=== PATIENT | male | born 1975 | race Hispanic/Latino ===

== ENCOUNTER 2023-04-21 16:45 | Inpatient (IN) | payer BC, OTHER ==
[~2023-04-21] VITALS: Ht 172.7 cm; Wt 147.9 kg
[2023-04-21 17:47] LABS: BASOPHILS % (AUTO) 0.3 % (0.0-5.0); EOSINOPHILS % (AUTO) 0.3 % (0.0-8.0); HEMATOCRIT 47.8 % (42-54); LYMPHOCYTES % (AUTO) 4.6 % (21.0-51.0); MEAN CORPUSCULAR HEMOGLOBIN 27.4 pg (27.0-33.0); MEAN CORPUSCULAR HGB CONC 32.8 g/dL (32.0-36.0); MEAN CORPUSCULAR VOLUME 83.3 fL (79-99); MONOCYTES % (AUTO) 9.8 % (3.0-13.0); NEUTROPHILS % (AUTO) 84.3 % (40.0-77.0); PLATELET COUNT (AUTO) 331 K/uL (130-400); RED BLOOD CELL COUNT(AUTO) 5.74 MIL/uL (4.50-6.20); RED CELL DISTRIBUTION WIDTH 12.6 % (11.0-15.5); WHITE BLOOD COUNT (AUTO) 26.4 K/uL (4.8-10.8)
[2023-04-21 17:58] LABS: INR 1.11 (0.85-1.15); PROTHROMBIN TIME 12.8 SEC (9.6-11.6)
[2023-04-21 17:59] LABS: PARTIAL THROMBOPLASTIN TIME 30.6 SEC (26.3-35.5)
[2023-04-21 18:15] LABS: ALBUMIN 2.6 g/dL (3.5-5.0); TOTAL PROTEIN, SERUM 8.6 g/dL (6.0-8.3)
[2023-04-21] MEDS ORDERED: LACTATED RINGERS 1000ML 1,000 ML IV ONE (18:57)
[2023-04-21] MEDS ORDERED: ZOSYN 3.375GM+NS 50ML 50 ML IVPB ONE (18:57)
[2023-04-21] MEDS ORDERED: ZOSYN 3.375GM +NS 50ML IVPB SCH (19:00)
[2023-04-21] MEDS ORDERED: VANCOMYCIN PROTOCOL PER PHARMACY IV SCH (19:00)
[2023-04-21] MEDS ORDERED: VANCOMYCIN KIT 1 GM/250 ML IV.KIT IV ONE (19:00)
[2023-04-21] MEDS ORDERED: LACTATED RINGERS 1000ML 1,000 ML IV SCH (19:00)
[2023-04-21] MEDS ORDERED: ONDANSETRON 4MG INJ IV PRN (19:30)
[2023-04-21] MEDS ORDERED: ACETAMINOPHEN 325 MG TAB PO PRN ×2 (19:30)
[2023-04-21] MEDS ORDERED: LACTATED RINGERS 1000ML 2,052 ML IV SCH (19:30)
[2023-04-21] MEDS ORDERED: HYDROMORPHONE 1 MG INJ IV PRN (19:30)
[2023-04-21] MEDS ORDERED: VANCOMYCIN PROTOCOL PER PHARMACY IV PRN (19:30)
[2023-04-21] MEDS: FAMOTIDINE 20MG VIAL IV SCH (20:04)
[2023-04-21] MEDS: ZOSYN 3.375GM+NS 50ML 50 ML IVPB SCH (21:00)
[2023-04-21] MEDS ORDERED: ASPIRIN 81MG CHEW TAB PO ONE (21:00)
[2023-04-21] MEDS ORDERED: VANCOMYCIN 1G 2.5 GM in 0.9% NACL 500ML IV.SOLN 500 ML IV SCH (21:00)
[2023-04-21] MEDS ORDERED: POTASSIUM CHLORIDE 20MEQ/100ML 100 ML IV PRN (21:00)
[2023-04-21] MEDS: LACTATED RINGERS 1000ML 1,000 ML IV SCH (21:19)
[2023-04-21] MEDS: HEPARIN 5,000 UNIT VIAL SQ SCH (21:20)
[2023-04-21] MEDS: NITROGLYCERIN 1GM OINT 1 INCH/1GM TD SCH (21:20)
[2023-04-21] MEDS: INSULIN HUMULIN R 100 UNIT/ML 3ML SQ SCH (21:43)
[2023-04-21 22:40] VITALS: BP 143/83; PULSE 100; RESP 25
[2023-04-21 23:00] VITALS: O2SAT 100
[2023-04-21] MEDS ORDERED: DOXY-469 PO (23:12)
[2023-04-21] MEDS ORDERED: GABA-529 PO (23:12)
[2023-04-21] MEDS ORDERED: LISI2.5T13 PO (23:12)
[2023-04-21] MEDS ORDERED: SITA1TAB6 PO (23:12)
[2023-04-21] MEDS ORDERED: ATOR20TA65 PO (23:12)
[2023-04-21] MEDS: HYDROCODONE/ACETAMINOPHEN 5/325 MG TAB PO PRN (23:46)
[2023-04-22] VITALS (22 sets, daily range): BP systolic 118–139; BP diastolic 58–79; PULSE 83–99; RESP 11–21; O2SAT 93–96
[2023-04-22 05:23] LABS: BASOPHILS % (AUTO) 0.3 % (0.0-5.0); EOSINOPHILS % (AUTO) 0.3 % (0.0-8.0); HEMATOCRIT 41.5 % (42-54); MEAN CORPUSCULAR HEMOGLOBIN 26.7 pg (27.0-33.0); MEAN CORPUSCULAR HGB CONC 32.5 g/dL (32.0-36.0); MONOCYTES % (AUTO) 10.4 % (3.0-13.0); NEUTROPHILS % (AUTO) 78.3 % (40.0-77.0); PLATELET COUNT (AUTO) 294 K/uL (130-400); RED BLOOD CELL COUNT(AUTO) 5.06 MIL/uL (4.50-6.20); RED CELL DISTRIBUTION WIDTH 12.9 % (11.0-15.5); WHITE BLOOD COUNT (AUTO) 27.1 K/uL (4.8-10.8)
[2023-04-22 05:37] LABS: INR 1.07 (0.85-1.15); PROTHROMBIN TIME 12.4 SEC (9.6-11.6)
[2023-04-22 05:39] LABS: PARTIAL THROMBOPLASTIN TIME 31.9 SEC (26.3-35.5)
[2023-04-22 05:52] LABS: CREATININE 0.9 mg/dL (0.5-1.5); MAGNESIUM 1.7 mg/dL (1.80-2.40); PHOSPHORUS 3.8 mg/dL (2.5-4.9); POTASSIUM 4.6 mmol/L (3.5-5.1)
[2023-04-22 06:27] LABS: HEMOGLOBIN A1C 12.4 % (4.0-6.0)
[2023-04-22] MEDS: NITROGLYCERIN 1GM OINT 1 INCH/1GM TD SCH ×3 (06:32→20:30)
[2023-04-22] MEDS: INSULIN HUMULIN R 100 UNIT/ML 3ML SQ SCH ×4 (06:32→20:35)
[2023-04-22] MEDS: ZOSYN 3.375GM+NS 50ML 50 ML IVPB SCH ×3 (06:33→20:29)
[2023-04-22] MEDS ORDERED: VANCOMYCIN IV SCH (09:00)
[2023-04-22] MEDS ORDERED: NACL 0.9% IV SCH (09:00)
[2023-04-22] MEDS: ASPIRIN 81MG CHEW TAB PO SCH (09:26)
[2023-04-22] MEDS: FAMOTIDINE 20MG VIAL IV SCH ×2 (09:26→20:30)
[2023-04-22] MEDS: LACTATED RINGERS 1000ML 1,000 ML IV SCH ×2 (09:27→22:10)
[2023-04-22] MEDS: HEPARIN 5,000 UNIT VIAL SQ SCH ×3 (09:33→20:30)
[2023-04-22] MEDS: MAGNESIUM 2GM PREMIX 50ML 50 ML IV PRN (09:37)
[2023-04-22] MEDS: HYDROCODONE/ACETAMINOPHEN 5/325 MG TAB PO PRN (13:09)
[2023-04-22] MEDS ORDERED: LIDOCAINE HCL 1% 20 ML VIAL ONE (18:52)
[2023-04-22] MEDS ORDERED: BUPIVACAINE/PF 0.5% 30ML VIAL ONE (18:52)
[2023-04-22] MEDS: VANCOMYCIN 1.5 GM/250 ML BAG 250 ML IV SCH (20:29)
[2023-04-22] MEDS ORDERED: FENTANYL CITRATE PF 50 MCG/1 ML 2ML VIAL ONE ×3 (21:22→21:55)
[2023-04-22] MEDS ORDERED: PROPOFOL 10 MG/ML 20ML VIAL IV ONE (21:22)
[2023-04-22] MEDS ORDERED: PROPOFOL 1000 MG/100 ML 100 ML IV ONE (21:30)
[2023-04-22] MEDS ORDERED: MIDAZOLAM HCL 1 MG/ML 2ML VIAL ONE (21:31)
[2023-04-22] MEDS ORDERED: BUPIVACAINE/PF 0.5% 30ML VIAL INJ ONE (21:37)
[2023-04-22] MEDS ORDERED: LIDOCAINE HCL 1% 20 ML VIAL INJ ONE (21:37)
[2023-04-22] MEDS ORDERED: ONDANSETRON 4MG INJ ONE (21:55)
[2023-04-23] VITALS (13 sets, daily range): BP systolic 95–152; BP diastolic 48–85; PULSE 80–88; RESP 18–21; O2SAT 97–98
[2023-04-23] MEDS: HYDROCODONE/ACETAMINOPHEN 5/325 MG TAB PO PRN ×2 (02:25→20:43)
[2023-04-23] MEDS: VANCOMYCIN 1.5 GM/250 ML BAG 250 ML IV SCH ×3 (04:16→20:31)
[2023-04-23] MEDS: ZOSYN 3.375GM+NS 50ML 50 ML IVPB SCH ×3 (04:17→20:31)
[2023-04-23] MEDS: NITROGLYCERIN 1GM OINT 1 INCH/1GM TD SCH ×2 (04:17→13:00)
[2023-04-23 06:05] LABS: BASOPHILS % (AUTO) 0.4 % (0.0-5.0); EOSINOPHILS % (AUTO) 0.5 % (0.0-8.0); HEMATOCRIT 34.4 % (42-54); LYMPHOCYTES % (AUTO) 18.7 % (21.0-51.0); MEAN CORPUSCULAR HEMOGLOBIN 27.4 pg (27.0-33.0); MEAN CORPUSCULAR HGB CONC 31.7 g/dL (32.0-36.0); MEAN CORPUSCULAR VOLUME 86.4 fL (79-99); MONOCYTES % (AUTO) 11.4 % (3.0-13.0); NEUTROPHILS % (AUTO) 67.5 % (40.0-77.0); PLATELET COUNT (AUTO) 256 K/uL (130-400); RED BLOOD CELL COUNT(AUTO) 3.98 MIL/uL (4.50-6.20); RED CELL DISTRIBUTION WIDTH 12.8 % (11.0-15.5)
[2023-04-23] MEDS: INSULIN HUMULIN R 100 UNIT/ML 3ML SQ SCH ×6 (06:13→20:33)
[2023-04-23 06:39] LABS: ALBUMIN 1.5 g/dL (3.5-5.0); CREATININE 1.1 mg/dL (0.5-1.5); POTASSIUM 3.1 mmol/L (3.5-5.1); TOTAL PROTEIN, SERUM 5.2 g/dL (6.0-8.3)
[2023-04-23] MEDS ORDERED: POTASSIUM CHLORIDE 20MEQ/100ML 100 ML IV PRN (07:00)
[2023-04-23] MEDS ORDERED: POTASSIUM CHLORIDE 10% ELIXIR 20 MEQ/15 ML UDCUP PO PRN (07:00)
[2023-04-23] MEDS ORDERED: MAGNESIUM 2GM PREMIX 50ML 50 ML IV PRN (07:00)
[2023-04-23] MEDS ORDERED: INSULIN GLARGINE 100 UNITS/ML 10 ML VIAL SQ SCH (09:00)
[2023-04-23] MEDS: FAMOTIDINE 20MG VIAL IV SCH ×2 (09:50→20:30)
[2023-04-23] MEDS: ASPIRIN 81MG CHEW TAB PO SCH (09:51)
[2023-04-23] MEDS: HEPARIN 5,000 UNIT VIAL SQ SCH ×3 (09:58→20:31)
[2023-04-23] MEDS: KCL 20 MEQ ERTAB PO PRN ×2 (12:05→14:39)
[2023-04-24] VITALS (8 sets, daily range): BP systolic 98–139; BP diastolic 44–82; PULSE 72–80; RESP 18–24; O2SAT 97–98
[2023-04-24] MEDS: KCL 20 MEQ ERTAB PO PRN (01:38)
[2023-04-24] MEDS: MAGNESIUM 2GM PREMIX 50ML 50 ML IV PRN (01:39)
[2023-04-24] MEDS: ZOSYN 3.375GM+NS 50ML 50 ML IVPB SCH ×3 (05:12→20:56)
[2023-04-24] MEDS: VANCOMYCIN 1.5 GM/250 ML BAG 250 ML IV SCH (05:13)
[2023-04-24] MEDS: INSULIN HUMULIN R 100 UNIT/ML 3ML SQ SCH ×7 (06:05→22:06)
[2023-04-24 09:03] LABS: CREATININE 0.8 mg/dL (0.5-1.5); MAGNESIUM 2.4 mg/dL (1.80-2.40); POTASSIUM 3.9 mmol/L (3.5-5.1)
[2023-04-24] MEDS: INSULIN GLARGINE 100 UNITS/ML 10 ML VIAL SQ SCH (09:21)
[2023-04-24] MEDS: HEPARIN 5,000 UNIT VIAL SQ SCH ×3 (09:21→22:07)
[2023-04-24] MEDS: ASPIRIN 81MG CHEW TAB PO SCH (09:22)
[2023-04-24] MEDS: FAMOTIDINE 20MG VIAL IV SCH ×2 (09:22→22:07)
[2023-04-24 12:44] LABS: HEMATOCRIT 38.4 % (42-54); MEAN CORPUSCULAR HEMOGLOBIN 27.1 pg (27.0-33.0); MEAN CORPUSCULAR HGB CONC 31.5 g/dL (32.0-36.0); MEAN CORPUSCULAR VOLUME 85.9 fL (79-99); RED BLOOD CELL COUNT(AUTO) 4.47 MIL/uL (4.50-6.20); RED CELL DISTRIBUTION WIDTH 12.9 % (11.0-15.5); WHITE BLOOD COUNT (AUTO) 17.8 K/uL (4.8-10.8)
[2023-04-24] MEDS: VANCOMYCIN 1.75 GM/250 ML BAG 250 ML IV SCH (19:04)
[2023-04-24] MEDS: HYDROCODONE/ACETAMINOPHEN 5/325 MG TAB PO PRN (19:04)
[2023-04-25] VITALS (8 sets, daily range): BP systolic 97–140; BP diastolic 72–82; PULSE 71–75; RESP 20–24; O2SAT 95–98
[2023-04-25] MEDS: ZOSYN 3.375GM+NS 50ML 50 ML IVPB SCH ×3 (04:14→20:54)
[2023-04-25 05:02] LABS: HEMATOCRIT 37.5 % (42-54); MEAN CORPUSCULAR HEMOGLOBIN 26.6 pg (27.0-33.0); MEAN CORPUSCULAR HGB CONC 30.7 g/dL (32.0-36.0); MEAN CORPUSCULAR VOLUME 86.6 fL (79-99); PLATELET COUNT (AUTO) 339 K/uL (130-400); RED BLOOD CELL COUNT(AUTO) 4.33 MIL/uL (4.50-6.20); RED CELL DISTRIBUTION WIDTH 12.9 % (11.0-15.5); WHITE BLOOD COUNT (AUTO) 14.6 K/uL (4.8-10.8)
[2023-04-25 05:17] LABS: CREATININE 0.8 mg/dL (0.5-1.5); MAGNESIUM 2.2 mg/dL (1.80-2.40); POTASSIUM 3.6 mmol/L (3.5-5.1)
[2023-04-25] MEDS: KCL 20 MEQ ERTAB PO PRN (05:23)
[2023-04-25] MEDS: INSULIN HUMULIN R 100 UNIT/ML 3ML SQ SCH ×7 (06:35→20:11)
[2023-04-25] MEDS: VANCOMYCIN 1.75 GM/250 ML BAG 250 ML IV SCH ×2 (09:26→20:53)
[2023-04-25] MEDS: ASPIRIN 81MG CHEW TAB PO SCH (09:27)
[2023-04-25] MEDS: FAMOTIDINE 20MG VIAL IV SCH ×2 (09:27→20:54)
[2023-04-25] MEDS: INSULIN GLARGINE 100 UNITS/ML 10 ML VIAL SQ SCH (09:32)
[2023-04-25] MEDS: HEPARIN 5,000 UNIT VIAL SQ SCH ×3 (09:43→20:53)
[2023-04-25] MEDS: HYDROCODONE/ACETAMINOPHEN 5/325 MG TAB PO PRN (15:47)
[2023-04-26] VITALS (8 sets, daily range): BP systolic 101–153; BP diastolic 62–91; PULSE 68–76; RESP 20; O2SAT 95–97
[2023-04-26] MEDS: INSULIN HUMULIN R 100 UNIT/ML 3ML SQ SCH ×7 (05:53→21:00)
[2023-04-26] MEDS: ZOSYN 3.375GM+NS 50ML 50 ML IVPB SCH ×3 (06:00→21:29)
[2023-04-26 06:56] LABS: BASOPHILS % (AUTO) 0.6 % (0.0-5.0); EOSINOPHILS % (AUTO) 2.7 % (0.0-8.0); HEMATOCRIT 38.5 % (42-54); LYMPHOCYTES % (AUTO) 14.4 % (21.0-51.0); MEAN CORPUSCULAR HEMOGLOBIN 26.9 pg (27.0-33.0); MEAN CORPUSCULAR HGB CONC 30.9 g/dL (32.0-36.0); MEAN CORPUSCULAR VOLUME 86.9 fL (79-99); MONOCYTES % (AUTO) 9.5 % (3.0-13.0); PLATELET COUNT (AUTO) 415 K/uL (130-400); RED BLOOD CELL COUNT(AUTO) 4.43 MIL/uL (4.50-6.20); RED CELL DISTRIBUTION WIDTH 12.9 % (11.0-15.5); WHITE BLOOD COUNT (AUTO) 14.3 K/uL (4.8-10.8)
[2023-04-26 07:05] LABS: ALBUMIN 1.8 g/dL (3.5-5.0); CRP QUANTITATIVE 74.8 mg/L (0.00-9.0); TOTAL PROTEIN, SERUM 7.3 g/dL (6.0-8.3)
[2023-04-26 08:17] LABS: ERYTHROCYTE SEDIMENTATION RATE 120 MM/HR (0-15)
[2023-04-26] MEDS: FAMOTIDINE 20MG VIAL IV SCH ×2 (10:44→21:28)
[2023-04-26] MEDS: VANCOMYCIN 1.75 GM/250 ML BAG 250 ML IV SCH ×2 (10:44→21:29)
[2023-04-26] MEDS: INSULIN GLARGINE 100 UNITS/ML 10 ML VIAL SQ SCH (10:46)
[2023-04-26] MEDS: HEPARIN 5,000 UNIT VIAL SQ SCH ×3 (10:46→21:28)
[2023-04-26] MEDS: ASPIRIN 81MG CHEW TAB PO SCH (10:48)
[2023-04-26] MEDS: DOCUSATE SODIUM 100 MG CAP PO SCH ×2 (14:38→21:28)
[2023-04-27] VITALS (7 sets, daily range): BP systolic 123–154; BP diastolic 56–108; PULSE 63–75; RESP 19–20; O2SAT 97
[2023-04-27] MEDS: ZOSYN 3.375GM+NS 50ML 50 ML IVPB SCH ×3 (04:55→20:17)
[2023-04-27 05:53] LABS: BASOPHILS % (AUTO) 0.4 % (0.0-5.0); EOSINOPHILS % (AUTO) 3.7 % (0.0-8.0); HEMATOCRIT 37.1 % (42-54); LYMPHOCYTES % (AUTO) 12.6 % (21.0-51.0); MEAN CORPUSCULAR HEMOGLOBIN 26.6 pg (27.0-33.0); MEAN CORPUSCULAR HGB CONC 30.7 g/dL (32.0-36.0); MEAN CORPUSCULAR VOLUME 86.7 fL (79-99); MONOCYTES % (AUTO) 10.9 % (3.0-13.0); NEUTROPHILS % (AUTO) 71.6 % (40.0-77.0); PLATELET COUNT (AUTO) 389 K/uL (130-400); RED BLOOD CELL COUNT(AUTO) 4.28 MIL/uL (4.50-6.20); RED CELL DISTRIBUTION WIDTH 12.9 % (11.0-15.5); WHITE BLOOD COUNT (AUTO) 13.2 K/uL (4.8-10.8)
[2023-04-27] MEDS: INSULIN HUMULIN R 100 UNIT/ML 3ML SQ SCH ×7 (06:00→20:21)
[2023-04-27 06:18] LABS: ALBUMIN 1.8 g/dL (3.5-5.0); CREATININE 0.9 mg/dL (0.5-1.5); CRP QUANTITATIVE 59.2 mg/L (0.00-9.0); POTASSIUM 3.6 mmol/L (3.5-5.1)
[2023-04-27] MEDS: KCL 20 MEQ ERTAB PO PRN (06:28)
[2023-04-27 07:17] LABS: ERYTHROCYTE SEDIMENTATION RATE 122 MM/HR (0-15)
[2023-04-27] MEDS: FAMOTIDINE 20MG VIAL IV SCH ×2 (09:15→20:18)
[2023-04-27] MEDS: ASPIRIN 81MG CHEW TAB PO SCH (09:15)
[2023-04-27] MEDS: DOCUSATE SODIUM 100 MG CAP PO SCH ×2 (09:15→20:17)
[2023-04-27] MEDS: VANCOMYCIN 1.75 GM/250 ML BAG 250 ML IV SCH ×2 (09:16→20:18)
[2023-04-27] MEDS: HEPARIN 5,000 UNIT VIAL SQ SCH ×3 (09:24→20:19)
[2023-04-27] MEDS: INSULIN GLARGINE 100 UNITS/ML 10 ML VIAL SQ SCH (11:49)
== END 2023-04-27 21:45 | DRG 853 ==
LOC: EDH 16:45 → EDHIP 19:17 → 4DH 22:09
PROVIDERS: ADMIT Internal Medicine; ATTEND Internal Medicine
PROC: 0J9Q0ZZ Drainage of Right Foot Subcutaneous Tissue and Fascia, Open Approach (ICD-10-PCS; 2023-04-22)
PROC: 0JBR0ZZ Excision of Left Foot Subcutaneous Tissue and Fascia, Open Approach (ICD-10-PCS; principal; 2023-04-22 21:33)
DX: A40.9 Streptococcal sepsis, unspecified (principal); A48.0 Gas gangrene; E11.52 Type 2 diabetes mellitus with diabetic peripheral angiopathy with gangrene; L02.612 Cutaneous abscess of left foot; L03.116 Cellulitis of left lower limb; Z68.42 Body mass index [BMI] 45.0-49.9, adult; Z20.822 Contact with and (suspected) exposure to COVID-19; E11.65 Type 2 diabetes mellitus with hyperglycemia; E11.621 Type 2 diabetes mellitus with foot ulcer; E11.42 Type 2 diabetes mellitus with diabetic polyneuropathy; L97.519 Non-pressure chronic ulcer of other part of right foot with unspecified severity; E66.01 Morbid (severe) obesity due to excess calories; E78.00 Pure hypercholesterolemia, unspecified; I10 Essential (primary) hypertension; Z79.82 Long term (current) use of aspirin; Z83.3 Family history of diabetes mellitus
CPT/HCPCS: 36415; 73630; 80048; 80053; 80202; 82550; 82948; 83036; 83605; 83735; 84100; 84145; 84484; 85025; 85027; 85610; 85651; 85730; 86140; 86850; 86900; 86901; 87040; 87070; 87076; 87077; 87186; 87205; 87635; 93005; 93306; 93970; 97039; G0378; J1644; J1815; J2250; J2405; J2543; J2704; J3010; J3370; J3475; J3490; J7040; J7120